=== PATIENT | female | born 1955 | race Caucasian/White ===

== ENCOUNTER 2024-06-10 07:54 | Day surgery (SDC) | payer MEDICARE, BC, SELFPAY ==
[2024-06-04 12:52] VITALS: BMI 28.1
[2024-06-10] MEDS: LACTATED RINGERS 1000ML 1,000 ML 50 ML IV (08:59)
[2024-06-10 09:01] VITALS: BP 107/62; PULSE 61; RESP 18; TEMP 36.4; O2SAT 97
--- NOTE | 2024-06-10 09:36 | P.PNANES_ITS ---
[facility] Disclaimer: The information contained in this section may have been updated after the patient was seen, as this information can be updated by other users. Medical History (Updated 06/04/24 @ 12:53 by Adelia Van RN) Hyperlipemia Dementia GERD (gastroesophageal reflux disease) HTN (hypertension) Surgical History History of colonoscopy Family History Other No significant family history Social History Smoking Status: Never smoker alcohol intake: never substance use type: denies use current occupational status: retired Travel in the last 8 weeks: None [facility] Anesthesia Checklist Patient Identification Patient Identification: Verbal (Name & ) Structural Data Admitted From: Home Planned Operative Procedure/s: colonoscopy Consent for Planned Operative Procedure(s) Verified: Yes NPO Status Verified Time NPO: 00:00 Airway Assessment Mallampati Score:: Class II C-Spine Mobility Assessed: Yes TMJ Mobility Assessed: Yes Dentition: Dentures-good fit Neurological Assessment Level of Consciousness: Awake, Alert and Appropriate Anesthesia Plan Anesthesia Risk discussed: Yes Anesthesia Plan: Verified ASA Class: II Anesthesia Type: MAC
[2024-06-10 10:59] VITALS: O2SAT 100
--- NOTE | 2024-06-10 11:03 | P.HP_ITS ---
History of Present Illness *Admission Date: 06/10/24 *Reason for visit:: Screening for colon cancer *History of present illness: Mrs. Calles is a 69-year-old female who is here for screening for colon cancer. The examination is deemed medically necessary for screening colonoscopy. The patient has been seen, interviewed and examined prior to the procedure by both myself and the anesthesia provider. [facility] Disclaimer: The information contained in this section may have been updated after the patient was seen, as this information can be updated by other users. Medical History (Updated 06/10/24 @ 11:04 by Humble Gonzalez II, MD) Hyperlipemia Dementia GERD (gastroesophageal reflux disease) HTN (hypertension) Surgical History History of colonoscopy Family History Other No significant family history Social History (Updated 06/10/24 @ 09:37 by Hamzah Becerra CRNA) Smoking Status: Never smoker alcohol intake: never substance use type: denies use current occupational status: retired Travel in the last 8 weeks: None Have you lived/traveled outside [place] in past 30 days?: No Contact w/someone who lives/traveled outside [place] past 30 days?: No Exposure to someone with infectious disease in past 14 days?: No Do you have a fever (greater than 100.4 F or 38 C)?: No Have you tested positive for COVID-19: No Exposed to someone with COVID-19 in past 14 days?: No Do you have a sore throat?: No Do you have a cough?: No Do you have any weakness?: No Are you experiencing any nausea/vomitting?: No Do you have any diarrhea?: No Are you experiencing any unusual bleeding?: No Do you have any muscle aches/pain?: No Do you have any abdominal pain?: No Are you experiencing loss of taste or smell?: No Review of Systems Review of Systems Review of systems (narrative): Negative *Cardiovascular Comments: Negative *Gastrointestinal Comments: Negative *Genitourinary Comments: Negative *Musculoskeletal Comments: Negative *Neurologic Comments: Negative Meds Home Medications and Allergies Home Medications ?Medication ?Instructions ?Recorded ?Confirmed ?Type amlodipine 10 mg-benazepril 40 mg 1 cap PO DAILY 06/10/24 06/10/24 History capsule aspirin 81 mg capsule 81 mg PO DAILY 06/10/24 06/10/24 History atorvastatin 40 mg tablet 40 mg PO DAILY 06/10/24 06/10/24 History cetirizine 10 mg tablet 10 mg PO DAILY 06/10/24 06/10/24 History donepezil 10 mg tablet 10 mg PO DAILY 06/10/24 06/10/24 History famotidine 20 mg tablet 20 mg PO HS 06/10/24 06/10/24 History gabapentin 800 mg tablet 800 mg PO TID 06/10/24 06/10/24 History meloxicam 7.5 mg tablet 7.5 mg PO DAILY 06/10/24 06/10/24 History memantine 5 mg tablet 5 mg PO BID 06/10/24 06/10/24 History metoprolol tartrate 50 mg tablet 50 mg PO DAILY 06/10/24 06/10/24 History omeprazole 40 mg capsule,delayed 40 mg PO DAILY 06/10/24 06/10/24 History release trazodone 50 mg tablet 50 mg PO HS 06/10/24 06/10/24 History New Prescriptions to Start Prescriptions: Allergies Allergy/AdvReac Type Severity Reaction Status Date / Time No Known Allergies Allergy Verified 06/04/24 12:54 Exam Data for Last 24 hours Vital signs and Labs for Last 24 Hours: Temp Pulse Resp BP Pulse Ox O2 Del Method O2 Flow Rate 97.6 F 61 18 107/62 L 97 Nasal Cannula 5 06/10/24 09:01 06/10/24 09:01 06/10/24 09:01 06/10/24 09:01 06/10/24 09:01 06/10/24 10:59 06/10/24 10:59 *Routine HEENT Exam Head: Present normocephalic Eye: Present EOMI and PERRL ENT: Present mucous membranes moist *Routine Neck Exam Neck: Present supple *Routine Respiratory Exam Respiratory: Present CTA bilaterally *Routine Cardiovascular Exam Cardiovascular: Present RRR *Routine Abdominal Exam Abdominal: Present soft and normoactive bowel sounds; Absent tenderness *Routine Rectal Exam Rectal:: deferred *Routine Genitalia Exam Genitalia:: deferred *Routine Extremities Exam Extremities: Absent cyanosis, clubbing or edema *Routine Skin Exam Skin: Present warm; Absent rash *Routine Neurological Exam Neurological: Present alert and oriented X3 Assessment and Plan *Assessment and plan (1) Screening for colon cancer: Status: Acute Category: Medical Code(s): Z12.11 - Encounter for screening for malignant neoplasm of colon Plan A/P: 1. Screening for colon cancer is the preprocedural diagnosis. The patient will be anesthetized/sedated using MAC sedation. The patient has been seen and examined. Cardiac and lung assessment prior to the examination is stable. Proceed with planned screening colonoscopy
--- NOTE | 2024-06-10 11:04 | HMH.PROCNOTE ---
[facility] Procedure Note Date: 06/10/24 Time: 11:16 Procedure Note:: Colonoscopy Procedure Report: Colonoscopy with cold snare polypectomy Endoscopist: Humble Gonzalez II, MD Referring physician: Anatoly Lehman MD Date of Procedure: June 10, 2024 Equipment: Olympus 190 variable stiffness pediatric colonoscope Sedation: MAC sedation Indication: Mrs. Calles is a 69-year-old female who is here for follow-up screening/surveillance colonoscopy. Her last colonoscopy was 10 years ago. She reports no rectal bleeding, change in bowel habits, weight loss or family history of colon cancer. She does have some dyspepsia and intermittent nausea. Procedure: Prior to the procedure, a history and physical exam was performed, and patient's medications and allergies were reviewed. The risks, benefits and alternatives of the sedation and procedure were discussed with the patient. All questions were answered and informed consent was obtained. The patient was brought to the procedure room. Patient identification and proposed procedure were verified by the physician and the nurse. The patient was placed in a left lateral decubitus position and the scope was passed under direct vision. Throughout the procedure, the patient's blood pressure, pulse, and oxygen saturations were monitored continuously. The colonoscopy was accomplished without difficulty. The patient tolerated the procedure well. Findings: On digital rectal examination there was normal rectal tone. There were no external hemorrhoids. The colonoscope was introduced through the anal canal to the rectum and advanced to the cecum. The ileocecal valve and appendiceal orifice were identified. The scope was advanced a short distance into the ileum which appeared grossly normal. The scope was then withdrawn into the colon. The cecum, ascending, transverse, descending, sigmoid and rectum were grossly normal. There was a single 3 to 4 mm polyp in the rectum removed via cold snare polypectomy. There were no mucosal abnormalities identified. Upon retroflexion within the rectum there were grade 1 internal hemorrhoids.The preparation was excellent throughout with [place] Preparation Score of 9. The cecal time was 12 minutes. Impression: 1. Diminutive rectal polyp (3 to 4 mm) Plan: I will follow-up the polyp histology and recommend repeat surveillance colonoscopy again in 10 years if the polyp is hyperplastic. I will discuss further evaluation and treatment of her dyspepsia.
[2024-06-10 11:18] VITALS: BP 80/46; PULSE 56; RESP 16; TEMP 36.2; O2SAT 98
[2024-06-10 11:28] VITALS: BP 91/52; PULSE 55; RESP 16; O2SAT 97
[2024-06-10 11:38] VITALS: BP 109/62; PULSE 56; RESP 17; O2SAT 98
[2024-06-10 11:48] VITALS: BP 135/57; PULSE 55; RESP 18; O2SAT 99
== END 2024-06-10 12:10 | disposition home or self-care (01) ==
PROVIDERS: PCP Family Medicine; Visit Provider Internal Medicine Gastroenterology
PROC: (CPT 45385; principal; 2024-06-10 10:00)
DX: K62.1 Rectal polyp (principal); K64.0 First degree hemorrhoids; Z12.11 Encounter for screening for malignant neoplasm of colon
CPT/HCPCS: 45385; 88305; J7120